=== PATIENT | male | born 1975 | race Caucasian/White ===

== ENCOUNTER → 2020-05-19 | Outpatient (CLI) | payer BC ==
[~2020-05-19] MED LIST: METHACHOLINE KIT (J7674) INH ONE
--- NOTE | 2020-06-05 14:16 | PFTRPT ---
Visit Date: 05/19/2020 Second ID: [id number] Referring Doctor: Bradley Moreno MD Height: 70.00 Inches Weight: 196.00 Lbs BSA: 2.07 Diagnosis: R06.00 QUALITY: Study of excellent technical quality. PROCEDURE: Under protocol, methacholine was administered. Even after a maximum dose of 25 mg or 188.875 CDUs, no provocation dose was ever achieved. IMPRESSION: Negative methacholine challenge study. MTDD
== END ==
LOC: M CARPUL 12:30
PROVIDERS: ATTEND Internal Medicine Pulmonary Disease
DX: R06.00 Dyspnea, unspecified (principal)
CPT/HCPCS: 94070; 95070; J7674